=== PATIENT | male | born 1980 | race African-American/Black ===

== ENCOUNTER 2025-02-17 21:16 | Emergency (ER) | payer OTHER, SELFPAY ==
[2025-02-17 21:25] VITALS: BP 137/70; PULSE 58; RESP 18; TEMP 36.7; O2SAT 98
[2025-02-17] MEDS: DACRIOSE EYE IRRIGATION 118 ML BOTTLE (22:26)
[2025-02-17] MEDS: FLUORESCEIN SOD 1 MG/STRIP (22:26)
[2025-02-17] MEDS: TETRACAINE HCL 0.5% OPHTH SOLN 4 ML BTL 1 DROP (22:27)
--- OUTSIDE RECORDS SUMMARY | 2025-02-17 22:49 | XMS_ITS ---
Author Organization Address [address] [place] [address] Care Team Providers Care Lead Shop Operator Name Role Phone Jorge Hidalgo Primary Care Provider REASON FOR VISIT 2 month f/u depression Encounters Encounter Location Date Provider Diagnosis [facility] [address] [place] [address] 11/15/2023 Jorge Hidalgo Plan Of Treatment No Information Progress Notes * Emma ALVAREZeDOB: [birth year] (44 yo M)Acc No.[id number]:11/15/2023 Progress Notes Patient: Daria GOMES Provider: Lon Hidalgo MD :1980 A ge:43 Y S ex:Male Date:11/15/2023 Address:[address] [facility] Subjective: * Chief Complaints: * 1 . 2 month f/u depression. * Medical History: Objective: Assessment: Plan: * Treatment: * Care Plan Details* * Electronic signature of Miguel Hidalgo MD on 02/17/2025 at 10:49 PM CDT Sign off status: Pending Visit Status: N /S (No-Show) * Provider: Lon Hidalgo MD Date: 11/15/2023 Generated for Susannai ng/Fafatimahg/eTransmitting on: 02/17/2025 10:49 PM CDT
--- OUTSIDE RECORDS SUMMARY | 2025-02-17 22:50 | XMS_ITS | Patient Health Record ---
Author Organization [facility] Address [address] [place] [address] Care Team Providers Care Plant Chief Name Role Phone Jorge Hidalgo Primary Care Provider [phone] Allergies No Known Allergies Reason For Referral No Information Medications Medication SIG (Take, Route, Frequency, Duration) Notes Start Date End Date Status Fluticasone Propionate 50 MCG/ACT 1 spray in each nostril Nasally Twice a day; Duration: 90 days Active Wellbutrin XL 300 MG 1 tablet in the mor florencio Orally Once a day; Duration: 90 days 09/14/2023 Active Remeron 30 MG 1 tablet at bedtime orally Once a day; Duration: 90 days Active lamoTRIgine ER 200 MG 1 tablet Orally tw ice a day; Duration: 90 days Active busPIRone HCl 30 MG 1 tablet orally Thre e times a day; Duration: 90 days Active Norvasc 10 MG 1 tablet in the morn ing Orally Once a day; Duration: 90 days Active Social History Tobacco Use: Social History Observation Description Date Details (start date - stop date) Current Smoker NA - NA Tobacco Use/Smoking Question Answer Notes Are you a current smoker How often do you smoke cigarettes? every day How many cigarettes a day do you smoke? 6-10 Alcohol Screen (Audit-C) Question Answer Notes Did you have a drink containing alcohol in the p ast year? No Points 0 Interpretation Negative Sexual History Question Answer Notes Had sex in the past 12 months (vaginal, oral, or anal)? Yes with Women only Use protection? Yes How often? Some of the time Prevention strategies discussed: Condoms Have you ever had a Sexually transmitted disease ? No Tobacco use other than smoking: Question Answer Notes Are you an other tobacco user? No Problems Problem Type SNOMED Code ICD Code Onset Dates Problem Status W/U Status Risk Notes Problem Essential hypertension (26047685) Essential (primary) hypertension (I10) Active confirmed Problem Mixed anxiety and depressive disorder (222261916) Anxiety and depression (F41.9) Active confirmed Problem Insomnia (323153758) Insomnia (G47.00) Active confirmed Problem Adjustment disorder with anxious mood (61288989) Adjustment disorder with anxious mood (F43.22) Active confirmed Problem Schizophrenia (98575155) Schizophrenia, unspecified type (F20.9) Active confirmed Problem Allergic rhinitis (44511004) Allergic rhinitis (J30.9) Active confirmed Problem Gouty arthritis (72361874) Gouty arthritis (M10.9) Active confirmed Plan Of Treatment Pending Test Test Name Order Date X ray : Wrist, left; 2 Views : 39534 VITAMIN D (25 [place]) * 08/28/2022 Insurance Providers Payer Name Payer Address Payer Phone Subscriber Number Group Number Insured Name Patient Relationship to Insured Coverage Start Date Coverage End Date [place] Blue [employer] Blue Shield [address] [place] [address] [place] [address] [id number] Daria Alvarez Self - patient is the insured [facility] [address] [address] [id number] Daria Alvarez Self - patient is the insured [facility] [address] [place] [address] [id number] Daria Alvarez Self - patient is the insured Medications Administered Medication Instructions Date of Administration Dosage Notes cefTRIAXone Sodium 09/04/2022 1 mL Medical (General) History Medical History History ICD Code Anxiety and depression Back pain Essential primary hypertension Insomnia Adjustment disorder with anxious mood Schizophrenia Allergic rhinitis Gouty arthritis
--- OUTSIDE RECORDS SUMMARY | 2025-02-17 22:50 | XMS_ITS ---
Author Organization [facility] Address [address] [place] [address] Care Team Providers Care Breast Splitter Name Role Phone Jorge Hidalgo Primary Care Provider [phone] REASON FOR VISIT med refill Encounters Encounter Location Date Provider Diagnosis [facility] [address] [place] [address] 01/31/2024 Jorge Hidalgo Plan Of Treatment No Information Progress Notes * Emma ALVAREZeDOB: [birth year] (44 yo M)Acc No.[id number]:01/31/2024 Progress Notes Patient: Daria GOMES Provider: Lon Hidalgo MD :1980 A ge:43 Y S ex:Male Date:01/31/2024 Address:[address] [facility] Subjective: * Chief Complaints: * 1 . Med refill. * Medical History: Objective: Assessment: Plan: * Treatment: * Care Plan Details* * Electronic signature of Miguel Hidalgo MD on 02/17/2025 at 10:50 PM CDT Sign off status: Pending Visit Status: N /S (No-Show) * Provider: Lon Hidalgo MD Date: 01/31/2024 Generated for Himanshu ng/Faxing/eTransmitting on: 0 02/17/2025 10:50 PM CDT
--- OUTSIDE RECORDS SUMMARY | 2025-02-17 22:50 | XMS_ITS ---
Author Organization [facility] Address [address] [place] [address] Care Team Providers Care Assisted Living Home Director Name Role Phone Jorge Hidalgo Primary Care Provider REASON FOR VISIT check up/meds Encounters Encounter Location Date Provider Diagnosis [facility] [address] [place] [address] 01/27/2024 Jorge Hidalgo Plan Of Treatment No Information Progress Notes * Emma ALVAREZeDOB: [birth year] (44 yo M)Acc No.[id number]:01/27/2024 Progress Note Patient: Daria GOMES Provider: Lon Hidalgo MD :1980 A ge:43 Y S ex:Male Date:01/27/2024 Address[address] [facility] Subjective: * Chief Complaints: * 1 . Check up/meds. * Medical History: * Ocular Surgical History: Objective: Assessment: Plan: * Treatment: * * Electronic signature of Miguel Hidalgo MD on 02/17/2025 at 10:49 PM CDT Sign off status: Pending Visit Status: C ANCPHONE (Voice) * Provider: Lon Hidalgo MD Date: 01/27/2024 Generated for Susannai ng/Faxing/eTransmitting on: 02/17/2025 10:49 PM CDT
--- NOTE | 2025-02-17 23:12 | ED_ITS ---
HPI - Eye Problem General Chief complaint: Eye Problems Stated complaint: left eye work injury 02/17 Time Seen by Provider: 02/17/25 22:14 History of Present Illness HPI Narrative: 44-year-old male with no pertinent past medical history presenting to the emergency department after getting some grease into his left eye while cooking at work. 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 Flushes I immediately afte rwards but was complaining of some mild blurring vision and burning that have since improved after some ophthalmological rinse eyedrops that he was given at work. He has some minor blurring of his vision that he describes as a crescent meraz shaped defect but no pain or pain with extraocular movements. No fever chills. He does not have a recent tetanus update. Was otherwise in his normal state of health. Does not wear contact lenses and has no history of any ophthalmological procedure. Related Data Allergies Allergy/AdvReac Type Severity Reaction Status Date / Time No Known Allergies Allergy Verified 02/17/25 21:31 Review of Systems Review of Systems: As reviewed above in HPI Exam Narrative: GENERAL: [Well-appearing, well-nourished, and in no acute distress.] HEAD: [Normocephalic, atraumatic.] EYES: Pupils are equal reactive to light, extraocular movements are full without pain. Corneal examination under fluorescein dye does not show any corneal defect or caustic ivrin. No side L sign, no foreign body material in the cornea or underneath the upper lower eyelid. ENT: Nares clear, no rhinorrhea or epistaxis. Mucous membranes moist. NECK: Supple. CHEST: [Clear to auscultation. No respiratory distress.] HEART: [Regular rate and rhythm]. No murmur heard. [Normal peripheral pulses.] ABDOMEN: [Soft, nondistended], [nontender], [No rigidity or guarding] EXTREMITIES: Normal range of motion. [No edema.] SKIN: Warm, dry, no rash. NEURO: [No focal deficits]. Alert and oriented [x3.] PSYCH: [Normal mood and affect.] Course Vital Signs Vital signs: Vital Signs Temperature 36.7 C 02/17/25 21:25 Pulse Rate 58 L 02/17/25 21:25 Respiratory Rate 18 02/17/25 21:25 Blood Pressure 137/70 02/17/25 21:25 Pulse Oximetry 98 02/17/25 21:25 Oxygen Delivery Room Air 02/17/25 21:25 Temperature 36.7 C 02/17/25 21:25 Pulse Rate 58 L 02/17/25 21:25 Respiratory Rate 18 02/17/25 21:25 Blood Pressure 137/70 02/17/25 21:25 Pulse Oximetry 98 02/17/25 21:25 Oxygen Delivery Room Air 02/17/25 21:25 MDM - Eye Problem MDM Narrative Medical decision making narrative: 44-year-old male with no pertinent past medical history presenting to the emergency department after getting some grease into his left eye while cooking at work. 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 Flushes I immediately afterwards but was complaining of some mild blurring vision and burning that have since improved after some ophthalmological rinse eyedrops that he was given at work. He has some minor blurring of his vision that he describes as a crescent meraz shaped defect but no pain or pain with extraocular movements. No fever chills. He does not have a recent tetanus update. Was otherwise in his normal state of health. Does not wear contact lenses and has no history of any ophthalmological procedure. Examination reveals pupils are equal reactive to light, extraocular movements are full without pain. Corneal examination under fluorescein dye does not show any corneal defect or caustic irvin. No side L sign, no foreign body material in the cornea or underneath the upper lower eyelid. Patient is hemodynamically stable normal vital signs here. Given patient's on exposure he was irrigated with the Maurice lens with a L of normal saline flushing, however reassuring physical exam findings without any obvious caustic irvin or ocular injury. Patient's tetanus will be updated here and he was given erythromycin ointment. Discussed follow-up instructions with ophthalmological clinic and he will be provided information. Patient will be re-evaluated after irrigation. Patient re-evaluated after irrigation had complete symptomatic resolution and felt much improved. Patient will be discharged home with erythromycin eyedrops and given ophthalmology clinic follow-up instructions. Questions were answered it patient is safe for discharge. Medical Records Attestation: I reviewed the patient's medical records. Discharge Plan Discharge Clinical Impression: Corneal burn Patient Disposition: Home Condition: Stable Instructions: Antibiotic Form, Eye Foreign Body (ED) Additional Instructions: We flushed your eye out with a L of saline with improvement in your symptoms and vision. We will send you home with erythromycin ointment applied to the eye to prevent bacterial infection. Your tetanus was updated here. Follow-up with the ophthalmological clinic and return with any emergent concerns. Patient Language: Cambodian Prescriptions: New erythromycin 5 mg/gram (0.5 %) ointment 0.5 inch LEFT EYE QID Qty: 3.5 0RF Follow-up/Referrals: [facility] - Bernard Licona [Outside] - 3 Days Jaquelin Garlik - Tori [Outside] - 3 Days () Loretta,KAT Fox [Primary Care Provider] - Time of Disposition: 00:29
[2025-02-18] MEDS: TETANUS,DIPHTHERIA,AC PERTUSSIS ADULT (0.5 ML) BOOSTRIX IM (00:34)
[2025-02-18] MEDS: ERYTHROMYCIN OPHTH OINTMENT 1 GM TUBE 1 APPLIC LEFT EYE (00:34)
[2025-02-18] MEDS: SODIUM CHLORIDE 0.9% IV 1,000 ML 1000 ML IRRIGATION (00:38)
[2025-02-18 01:05] VITALS: BP 136/89; PULSE 76; RESP 16; TEMP 36.9; O2SAT 98
--- NOTE | 2025-02-18 01:05 | PC.NURSE ---
pt eyes flushed with 1L per edp instructions.
== END 2025-02-18 01:06 | disposition home or self-care (01) ==
PROVIDERS: Emergency Provider Student in an Organized Health Care Education/Training Program; PCP Physician Assistant
DX: T26.12XA Burn of cornea and conjunctival sac, left eye, initial encounter (principal); X10.2XXA Contact with fats and cooking oils, initial encounter; Y93.G3 Activity, cooking and baking; Z23 Encounter for immunization
CPT/HCPCS: 90471; 90715; 99283; A9270; J7030